=== PATIENT | female | born 1950 | race Caucasian/White ===

== ENCOUNTER → 2016-08-09 | Outpatient (CLI) | payer MEDICARE ==
[2014-01-07 06:31] VITALS: BP 91/55
[~2016-08-09] MED LIST: ZOLP5TAB PO
--- NOTE | 2016-08-09 16:07 | RAD ---
Chest, 2 views, 08/09/2016: History: Cough for 10 days The heart size and pulmonary vascularity are normal. There is minimal scarring over the pulmonary apices. There is a minimal lingular opacity on the left partially obscuring the left heart border. No pleural fluid is evident. IMPRESSION: Minimal atelectasis/infiltrate versus scarring in the lingula on the left. Radiographic follow-up is suggested.
== END | disposition home or self-care (01) ==
LOC: RAD 11:32
PROVIDERS: ATTEND Family Medicine
DX: J98.11 Atelectasis (principal); J98.4 Other disorders of lung
CPT/HCPCS: 71020